=== PATIENT | female | born 1990 | race African-American/Black ===

== ENCOUNTER 2020-03-29 07:17 | Emergency (ER) | payer OTHER ==
[~2020-03-29] VITALS: Ht 167.6 cm; Wt 72.9 kg
[2020-03-29] MEDS ORDERED: NEXP1IMP SC (07:23)
[2020-03-29] MEDS ORDERED: LABE100T36 PO (07:23)
[2020-03-29] MEDS ORDERED: GALC120S SQ (07:23)
[2020-03-29 08:18] LABS: BASO % 0.7 % (0.0-1.0); EOS # 0.1 10^3/uL (0.0-0.5); EOS % 1.6 % (0.0-3.0); HEMATOCRIT 36.7 % (36.0-47.0); LYMPH # 1.8 10^3/uL (1.5-5.0); LYMPH % 40.9 % (24.0-44.0); MEAN CORPUSCULAR HEMOGLOBIN 29.6 pg (27.0-33.0); MEAN CORPUSCULAR HGB CONC 32.7 g/dl (32.0-36.5); MEAN CORPUSCULAR VOLUME 90.6 fl (80.0-96.0); MONO # 0.5 10^3/uL (0.0-0.8); MONO % 10.5 % (0.0-5.0); NEUTROPHILS # 2.1 10^3/uL (1.5-8.5); NEUTROPHILS % 46.1 % (36.0-66.0); PLATELET COUNT, AUTOMATED 267 10^3/uL (150-450); RED BLOOD COUNT 4.05 10^6/uL (4.00-5.40); WHITE BLOOD COUNT 4.5 10^3/uL (4.0-10.0)
[2020-03-29 08:44] LABS: ALBUMIN 3.9 GM/DL (3.2-5.2); BILIRUBIN,DIRECT 0.1 MG/DL (0.0-0.2); BILIRUBIN,TOTAL 0.4 MG/DL (0.2-1.0); TOTAL PROTEIN 7.8 GM/DL (6.4-8.2)
--- NOTE | 2020-03-29 10:08 | REP ---
PELVIC ULTRASOUND: Real-time sonographic evaluation of the pelvis is performed utilizing transabdominal and endovaginal technique. The bladder measures 6.5 x 4.7 x 8.1 cm. The uterus measures 8.1 x 3.1 x 3.8 cm. Endometrial thickness in the lower uterine segment is 5 mm and in the body and fundus 2 mm. A small amount of fluid is seen in the cervical canal. Right ovary measures 3.2 x 2.0 x 2.2 cm and the left ovary 1.9 x 1.1 x 2.4 cm. Complex cystic structure in the right ovary measures 2.4 x 1.2 x 1.3 cm representing a complex dominant follicle or resolving cyst. There is no torsion. There is no free fluid. IMPRESSION: Endometrial thickness 2 mm in the body and fundus and 5 mm in the lower uterine segment. A small amount of fluid in the cervical canal. Complex dominant follicle or resolving cyst right ovary 2.4 cm with no torsion. Electronically Signed by Richard Hidalgo MD 03/29/2020 11:18 P
[2020-03-29 10:31] VITALS: BP 138/96
--- NOTE | 2020-03-30 09:44 | ED PDOC ---
Post-Departure Follow-Up ft daniel arrington fxaed formal report of pelvic us for fu Lila Jean-Baptiste MD Mar 30, 2020 09:44
== END 2020-03-29 10:54 | disposition home or self-care (01) ==
LOC: M ED 07:17
DX: N83.291 Other ovarian cyst, right side (principal); I10 Essential (primary) hypertension; Z79.3 Long term (current) use of hormonal contraceptives; Z79.899 Other long term (current) drug therapy

== ENCOUNTER 2020-06-14 07:21 | Day surgery (SDC) | payer OTHER ==
[~2020-06-14] VITALS: Ht 162.6 cm; Wt 75.7 kg
[~2020-06-14 07:21] MED LIST: GALC120S SQ; LABE100T36 PO; LR 1,000 ML IV ONE; NEXP1IMP SC; ceFAZolin SOD 2 GM in IV 1 EA IV ONE
[2020-06-14] MEDS ORDERED: fentaNYL 100 MCG/2 ML INJECTION (J3010) As Ordered ONE (08:31)
[2020-06-14] MEDS ORDERED: propofoL 200 MG/20 ML VIAL As Ordered ONE (08:31)
[2020-06-14] MEDS ORDERED: LIDOCAINE 2% 100MG/5ML SDV (FOR ANES.) As Ordered ONE (08:31)
[2020-06-14] MEDS ORDERED: MIDAZOLAM INJ 2MG/2ML VIAL (J2250 PER 1MG) As Ordered ONE (08:31)
[2020-06-14] MEDS ORDERED: BUPIVACAINE HCL 0.5% 30 ML VIAL As Ordered ONE (09:10)
[2020-06-14] MEDS ORDERED: LIDOCAINE 1% MDV 20ML VIAL As Ordered ONE (09:10)
[2020-06-14] MEDS ORDERED: dexameTHASONE 4 MG/ML 1ML VIAL (J1100 PER 1MG) As Ordered ONE (09:10)
[2020-06-14 10:55] VITALS: BP 122/74
--- NOTE | 2020-06-21 08:32 | RO ---
DATE OF OPERATION: 06/14/2020 PREOPERATIVE DIAGNOSIS: Left bunion. POSTOPERATIVE DIAGNOSIS: Left bunion. PROCEDURE: Left foot bunionectomy, first metatarsal osteotomy. SURGEON: Austin Friedman DPM SENIOR LABEL SPECIALIST: None. ANESTHESIA: Monitored anesthesia care. PREOPERATIVE INJECTION: 15 mL of a 1:1 mixture of 1% lidocaine with 0.5% Marcaine plain. ESTIMATED BLOOD LOSS: Minimal. MATERIALS: Arthrex 3.5 headless compression screw, 3-0 and 4-0 Vicryl, and 4-0 nylon. INJECTABLES: 1 mL of Decadron 4 mg/mL. COMPLICATIONS: None. CONDITION: Stable. INDICATIONS: Torri Cai is a 29-year-old female who has a painful left bunion. She presents today for surgical correction. The patient's side and site were identified and marked preoperatively. Consent was reviewed and obtained. The risks, complications and alternatives to the procedure explained to the patient in detail and all questions were answered. PROCEDURE: The patient was brought to the operating room and placed on the operating room table in the supine position. Monitored anesthesia care was delivered by the anesthesia team. Preoperative injection of 15 mL of a 1:1 mixture of 1% lidocaine plain and 0.5% Marcaine plain were injected in the left foot. The left foot was prepped and draped in normal sterile fashion. The tourniquet was applied on the left ankle and inflated to 250 mmHg. A dorsomedial incision was carried through with a #15 blade and carried through to the first metatarsophalangeal joint capsule. A T-capsulotomy was performed exposing the metatarsal head. Following this, a lateral release was performed releasing the lateral capsule, adductor tendon and sesamoidal ligaments. McGlamry elevator was used to release the plantar structures. Following this, the median eminence of the metatarsal head was resected with sagittal saw and an osteotomy was performed on the metatarsal head and neck transposing it laterally. This was fixated with an Arthrex 3.5 headless compression screw. Site was smoothed with a rasp and then irrigated with normal saline. A small wedge of capsule was removed from the medial capsule and this was repaired with 3-0 Vicryl. Subcutaneous was closed with 4-0 Vicryl and skin closure with 4-0 nylon. One mL of Decadron was injected. Sterile dressings were applied. Tourniquet was deflated. The patient was brought PACU with vital signs stable and neurovascular status intact. She will be partial weightbearing with crutches. She will follow up in the office in two days. REYNA
== END 2020-06-14 11:20 | disposition home or self-care (01) ==
LOC: M SDC 07:21
PROVIDERS: ATTEND Podiatrist Foot & Ankle Surgery
DX: M20.12 Hallux valgus (acquired), left foot (principal); G43.909 Migraine, unspecified, not intractable, without status migrainosus; I10 Essential (primary) hypertension
CPT/HCPCS: 28296; 81025; 88300; 97116; C1713; J0690; J1100; J2250; J3010

== ENCOUNTER 2020-09-14 23:44 | Emergency (ER) | payer OTHER ==
[~2020-09-14] VITALS: Ht 162.6 cm; Wt 77.4 kg
[~2020-09-14 23:44] MED LIST changes: -LR 1,000 ML IV ONE; -ceFAZolin SOD 2 GM in IV 1 EA IV ONE
[2020-09-14] MEDS ORDERED: LABE100T4 (23:56)
[2020-09-15 00:26] LABS: BLOOD UREA NITROGEN 17 MG/DL (7-18); CALCIUM LEVEL 9.3 MG/DL (8.5-10.1); CARBON DIOXIDE LEVEL 28 MEQ/L (21-32); CHLORIDE LEVEL 105 MEQ/L (98-107); CREATININE FOR GFR 0.87 MG/DL (0.55-1.30); GLOMERULAR FILTRATION RATE > 60.0 (>60); GLUCOSE, FASTING 104 MG/DL (70-100); POTASSIUM SERUM 3.3 MEQ/L (3.5-5.1); SODIUM LEVEL 139 MEQ/L (136-145)
[2020-09-15 00:28] LABS: BASO # 0.1 10^3/uL (0.0-0.2); BASO % 0.5 % (0.0-1.0); EOS # 0.1 10^3/uL (0.0-0.5); EOS % 1.1 % (0.0-3.0); HEMATOCRIT 39.2 % (36.0-47.0); HEMOGLOBIN 12.6 g/dl (12.0-15.5); LYMPH # 4.6 10^3/uL (1.5-5.0); LYMPH % 36.4 % (24.0-44.0); MEAN CORPUSCULAR HEMOGLOBIN 29.4 pg (27.0-33.0); MEAN CORPUSCULAR HGB CONC 32.1 g/dl (32.0-36.5); MEAN CORPUSCULAR VOLUME 91.4 fl (80.0-96.0); MONO # 1.2 10^3/uL (0.0-0.8); MONO % 9.8 % (0.0-5.0); NEUTROPHILS # 6.5 10^3/uL (1.5-8.5); PLATELET COUNT, AUTOMATED 271 10^3/uL (150-450); RED BLOOD COUNT 4.29 10^6/uL (4.00-5.40); WHITE BLOOD COUNT 12.6 10^3/uL (4.0-10.0)
[2020-09-15] MEDS ORDERED: LABETALOL 100MG/20ML VIAL IV STA (00:49)
--- NOTE | 2020-09-15 00:50 | REPVR ---
PROCEDURE INFORMATION: Exam: XR Chest, 2 Views Exam date and time: 09/15/2020 12:31 AM Age: 29 years old Clinical indication: Chest pain; Type not specified TECHNIQUE: Imaging protocol: XR of the chest Views: 2 views. COMPARISON: No relevant prior studies available. FINDINGS: Lungs: Degree of inflation of the lungs is normal. No evidence of pulmonary edema. No focal airspace process. No concerning parenchymal lung mass. Pleural space: No pleural effusion or pneumothorax. Heart/Mediastinum: Cardiac silhouette appears normal. No mediastinal adenopathy or hilar mass. Bones/joints: Osseous structures show no acute or concerning abnormality. IMPRESSION: No active or focal cardiopulmonary process. Electronically signed by: Zeb Townsend On 09/15/2020 00:50:33 AM
[2020-09-15 00:57] VITALS: BP 169/100
[2020-09-15 01:49] LABS: FREE T4 0.88 NG/DL (0.76-1.46); MAGNESIUM LEVEL 2.2 MG/DL (1.8-2.4)
[2020-09-15] MEDS ORDERED: LABE100T4 PO (02:11)
[2020-09-15] MEDS ORDERED: LABETALOL 100 MG TAB PO ONE (02:15)
[2020-09-15 02:30] VITALS: BP 123/71
--- NOTE | 2020-09-15 08:05 | ECGEPIP ---
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
== END 2020-09-15 02:43 | disposition home or self-care (01) ==
LOC: M ED 23:44
DX: R00.2 Palpitations (principal); I10 Essential (primary) hypertension; R00.0 Tachycardia, unspecified; Z79.3 Long term (current) use of hormonal contraceptives

== ENCOUNTER → 2020-10-04 | Outpatient (REF) | payer OTHER ==
[~2020-10-04] MED LIST changes: +EMGA120I; +LABE100T4; +LABE100T4 PO
[2020-10-04 17:58] LABS: APPEARANCE, URINE CLEAR (CLEAR); BACTERIA, URINE AUTO NEGATIVE (NEGATIVE); BILIRUBIN, URINE AUTO NEGATIVE (NEGATIVE); BLOOD, URINE BLOOD NEGATIVE (NEGATIVE); COLOR, URINE YELLOW (YELLOW); GLUCOSE, URINE (UA) AUTO NEGATIVE (NEGATIVE); KETONE, URINE AUTO NEGATIVE (NEGATIVE); LEUKOCYTE ESTERASE, URINE AUTO TRACE (NEGATIVE); MUCUS, URINE SMALL (NEGATIVE); NITRITE, URINE AUTO NEGATIVE (NEGATIVE); PROTEIN, URINE AUTO NEGATIVE (NEGATIVE); RBC, URINE AUTO 0 /HPF (0-3); SPECIFIC GRAVITY URINE AUTO 1.026 (1.002-1.035); SQUAMOUS EPITHELIAL CELL UR AU 3 /HPF (0-6); UROBILINOGEN, URINE AUTO 0.2 mg/dL (0.0-2.0); WBC, URINE AUTO 1 /HPF (0-3)
== END ==
LOC: M SMT 17:00
PROVIDERS: ATTEND Nurse Practitioner Family
DX: R35.0 Frequency of micturition (principal)
CPT/HCPCS: 51798; 81001; 87086; G0463

== ENCOUNTER 2020-10-31 08:37 | Day surgery (SDC) | payer OTHER ==
[~2020-10-31] VITALS: Ht 162.6 cm; Wt 79.8 kg
[~2020-10-31 08:37] MED LIST changes: +ACETAMINOPHEN 650 MG SUPP PR ONE; -LABE100T36 PO; +LABE100T5 PO; +LR 1,000 ML IV ONE
--- OUTSIDE RECORDS SUMMARY | 2020-10-31 09:12 | CCD | Continuity of Care Document ---
Author Author Karina LAZAR M.D. Organization Unknown Address [address] [place] [address] Phone [phone] Problems Active Problems Provider Date Migraine Asia Lazar M.D. Onset: 03/24/2020 Occipital headache Asia Lazar M.D. Onset: 03/24/2020 Social History Type Date Description Comments Sex Unknown Tobacco Use Start: Unknown Patient has never smoked Allergies, Adverse Reactions, Alerts Description No Known Drug Allergies Medications Active Medications SIG Qnty Indications Ordering Provide r Date Rizatriptan Benzoate 10mg Tablets Dispers take 1 tab at the immediate onset of migraine headache. may repeat in 2 hours, max 2 tabs in 24 hours, and 4 tabs in 7 days. 9tabs Sa brian Lazar M.D. 10/09/2020 Valium 5mg Tablets 1 by mouth half an hour before mri scan 1tabel Brizuela M.D. 04/05/2020 Emgality 120mg/ml Solution Auto-In ject Dispense one 120mg sc injection once per month. 1ml Asia Lazar M.D. 03/24/2020 Ondansetron 4mg Tablets Dispers take 1 tab every 8 hours as needed for migraine and or nausea and vomiting. 30tabel Lazar M.D. 03/24/2020 Immunizations Description No Information Available Vital Signs Date Vital Result Comment 10/09/2020 12:14pm Respiratory Rate 12 /min Height 64 inches 5'4" Weight 155.00 lb BMI (Body Mass Index) 26.6 kg/m2 Moran Body Weight 120 lb 06/29/2020 12:12pm Height 64 inches 5'4" Weight 155.00 lb BMI (Body Mass Index) 26.6 kg/m2 Moran Body Weight 120 lb Results Description No Information Available Procedures Date Code Description Status 05/17/2020 01256 Sympathetic Skin Responses Compl eted 05/17/2020 04276 Sympathetic Skin Responses Compl eted 05/17/2020 19778 Test Autonomic Nervous System, C ardiovagal Innervation Completed 05/17/2020 83412 Test Autonomic Nervous System, C ardiovagal Innervation Completed 05/17/2020 12622 Artery Study Extremity Mult Leve ls Bilateral Completed 05/17/2020 79618 Artery Study Extremity Mult Leve ls Bilateral Completed 05/17/2020 77509 Artery Study Extremity Mult Leve ls Bilateral Completed 05/17/2020 99991 Artery Study Extremity Mult Leve ls Bilateral Completed Medical Devices Description No Information Available Encounters Type Date Location Provider Dx Diagnosis Office Visit 10/09/2020 12:00p Main office - [place] Asia bennett M.D. 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 G43.119 Migraine with aura, intractable, without status migrainosus Assessments Date Code Description Provider 10/09/2020 D18.02 Hemangioma of intracranial struc tures Asia Lazar M.D. 10/09/2020 R51.9 Headache, unspecified Asia baez M.D. 06/29/2020 G43.119 Migraine with aura, intractable, without status migrainosus Asia Lazar M.D. 05/17/2020 I95.1 Orthostatic hypotension Asia foley M.D. 05/17/2020 I95.1 Orthostatic hypotension Ans/VS 05/17/2020 R00.0 Tachycardia, unspecified Asia ralph M.D. 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 Created [address] [place] [address] [phone]
--- OUTSIDE RECORDS SUMMARY | 2020-10-31 09:12 | CCD ---
Author Author [facility] Organization [facility] Address Unknown Phone Unavailable Care Team Providers Care Pipe Fitter Apprentice Name Role Phone Zan Orta Unavailable PROBLEMS Type Condition ICD9-CM Code WER19-WT Code Onset Dates Condition S tatus SNOMED Code Notes Problem Urinary frequency R35.0 Active 432333175 ALLERGIES No Known Allergies ENCOUNTERS from 1990 to 2020-10-07 Encounter Location Date Provider Diagnosis [facility] [address] [place] [address] Sep Zan Orta IMMUNIZATIONS No Information SOCIAL HISTORY Tobacco Use: Social History Observation Description Date Details (start date - stop date) Never Smoker Sex Assigned At : Social History Observation Description Sex Assigned At Unknown Language: Question Answer Notes Languages spoken: Israeli Caodaism: Question Answer Notes Caodaism No jewish beliefs that would impact health care. Alcohol Screening: Question Answer Notes Did you have a drink containing alcohol in the past year? Ye s Points 1 Interpretation Negative How often did you have six or more drinks on one occas ion in the past year? Never (0 points) How many drinks did you have on a typica l day when you were drinking in the past year? 1 or 2 (0 points) How often did you have a drink containing alcohol in t he past year? Monthly or less (1 point) Tobacco Use: Question Answer Notes Are you a: never smoker REASON FOR REFERRAL No Information VITAL SIGNS No information MEDICATIONS Medication SIG (Take, Route, Frequency, Duration) Notes Start Da te End Date Status Labetalol HCl 100 MG 1 tablet Orally Twice a day for 30 day(s) Active Oxybutynin Chloride ER 10 MG 1 tablet Orally Once a day for 30 d ay(s) Sep, Active Elmiron 100 MG 1 capsule on an empty stomac h Orally Three times a day for 30 day(s) Not-Taking Nexplanon 68 MG as directed Subcutaneous Active Letrozole 2.5 MG 1 tablet Orally Once a day for 30 day(s) Not-Taking PROCEDURES No Information RESULTS No Results REASON FOR VISIT records MEDICAL (GENERAL) HISTORY Type Description Date Medical History HTN Medical History Migraine with aura Surgical History foot surgery 05/2020 Surgical History tonsillectomy 2018 Surgical History oral surgery Surgical History colonoscopy 2016 Goals Section No Information Health Concerns No Information MEDICAL EQUIPMENT No Information MENTAL STATUS No Information FUNCTIONAL STATUS No Information ASSESSMENTS No Information PLAN OF TREATMENT Medication Medication Name Sig Start Date Stop Date Oxybutynin Chloride ER 10 MG 1 tablet Orally Once a day for 30 day(s) Sep, Next Appt Details Provider Name:Zan Orta, 2020-11-15 01:00:00 PM, [address], [place], [address], Insurance Providers Payer Name Payer Address Payer Phone Insured Name Patient Relati onship to Insured Coverage Start Date Coverage End Date [facility] [employer] [address] [place] [address] SAMMY FRANCISCO self
--- OUTSIDE RECORDS SUMMARY | 2020-10-31 09:12 | CCD ---
Author Author [facility] Organization [facility] Address Unknown Phone Unavailable Care Team Providers Care Channel Executive Name Role Phone Yani CHACKO DPM Unavailable Unavailable Yani CHACKO DPM Unavailable Unavailable Yani CHACKO DPM Unavailable Unavailable Yani CHACKO DPM Unavailable Unavailable Yani CHACKO DPM Unavailable Unavailable Yani CHACKO DPM Unavailable Unavailable Yani CHACKO DPM Unavailable Unavailable Yani CHACKO DPM Unavailable Unavailable Yani CHACKO DPM Unavailable Unavailable Yani CHACKO DPM Unavailable Unavailable Yani CHACKO DPM Unavailable Unavailable Yani CHACKO DPM Unavailable Unavailable Yani CHACKO DPM Unavailable Unavailable Yani CHACKO DPM Unavailable Unavailable Yani CHACKO DPM Unavailable Unavailable Yani CHACKO DPM Unavailable Unavailable Yani CHACKO DPM Unavailable Unavailable Yani CHACKO DPM Unavailable Unavailable Yani CHACKO DPM Unavailable Unavailable Yani CHACKO DPM Unavailable Unavailable Yani CHACKO DPM Unavailable Unavailable Yani CHACKO DPM Unavailable Unavailable Yani CHACKO DPM Unavailable Unavailable Yani CHACKO DPM Unavailable Unavailable Yani CHACKO DPM Unavailable Unavailable Yani CHACKO DPM Unavailable Unavailable Yani CHACKO DPM Unavailable Unavailable Yani CHACKO DPM Unavailable Unavailable Yani CHACKO DPM Unavailable Unavailable Yani CHACKO DPM Unavailable Unavailable Obiee Obia Solution Architect Dimeis, L Wendy STEWARD/STEWARDESS THIRD Unavailable Unavailable Obiee Obia Solution Architect Dimeis, L Wendy STEWARD/STEWARDESS THIRD Unavailable Unavailable Obiee Obia Solution Architect Dimeis, L Wendy STEWARD/STEWARDESS THIRD Unavailable Unavailable Obiee Obia Solution Architect Dimeis, L Wendy STEWARD/STEWARDESS THIRD Unavailable Unavailable Obiee Obia Solution Architect Dimeis, L Wendy STEWARD/STEWARDESS THIRD Unavailable Unavailable Obiee Obia Solution Architect Dimeis, L Wendy STEWARD/STEWARDESS THIRD Unavailable Unavailable Obiee Obia Solution Architect Dimeis, L Wendy STEWARD/STEWARDESS THIRD Unavailable Unavailable Obiee Obia Solution Architect Dimeis, L Wendy STEWARD/STEWARDESS THIRD Unavailable Unavailable Obiee Obia Solution Architect Dimeis, L Wendy STEWARD/STEWARDESS THIRD Unavailable Unavailable Obiee Obia Solution Architect Dimeis, L Wendy STEWARD/STEWARDESS THIRD Unavailable Unavailable Obiee Obia Solution Architect Dimeis, L Wendy STEWARD/STEWARDESS THIRD Unavailable Unavailable Obiee Obia Solution Architect Dimeis, L Wendy STEWARD/STEWARDESS THIRD Unavailable Unavailable Obiee Obia Solution Architect Dimeis, L Wendy STEWARD/STEWARDESS THIRD Unavailable Unavailable Obiee Obia Solution Architect Dimeis, L Wendy STEWARD/STEWARDESS THIRD Unavailable Unavailable Obiee Obia Solution Architect Dimeis, L Wendy STEWARD/STEWARDESS THIRD Unavailable Unavailable Obiee Obia Solution Architect Dimeis, L Wendy STEWARD/STEWARDESS THIRD Unavailable Unavailable Obiee Obia Solution Architect Dimeis, L Wendy STEWARD/STEWARDESS THIRD Unavailable Unavailable Obiee Obia Solution Architect Dimeis, L Wendy STEWARD/STEWARDESS THIRD Unavailable Unavailable Obiee Obia Solution Architect Dimeis, L Wendy STEWARD/STEWARDESS THIRD Unavailable Unavailable Obiee Obia Solution Architect Dimeis, L Wendy STEWARD/STEWARDESS THIRD Unavailable Unavailable Obiee Obia Solution Architect Dimeis, L Wendy STEWARD/STEWARDESS THIRD Unavailable Unavailable Obiee Obia Solution Architect Dimeis, L Wendy STEWARD/STEWARDESS THIRD Unavailable Unavailable Obiee Obia Solution Architect Dimeis, L Wendy STEWARD/STEWARDESS THIRD Unavailable Unavailable Obiee Obia Solution Architect Dimeis, L Wendy STEWARD/STEWARDESS THIRD Unavailable Unavailable Obiee Obia Solution Architect Dimeis, L Wendy STEWARD/STEWARDESS THIRD Unavailable Unavailable Obiee Obia Solution Architect Dimeis, L Wendy STEWARD/STEWARDESS THIRD Unavailable Unavailable Obiee Obia Solution Architect Dimeis, L Wendy STEWARD/STEWARDESS THIRD Unavailable Unavailable Vaishali Antony MD Unavailable Unavailable Vaishali Antony MD Unavailable Unavailable Vaishali Antony MD Unavailable Unavailable Vaishali Antony MD Unavailable Unavailable Vaishali Antoyn MD Unavailable Unavailable Vaishali Antony MD Unavailable Unavailable Vaishali Antony MD Unavailable Unavailable Vaishali Antony MD Unavailable Unavailable Vaishali Antony MD Unavailable Unavailable Vaishali Antony MD Unavailable Unavailable Vaishali Antony MD Unavailable Unavailable Vaishali Antony MD Unavailable Unavailable Vaishali Antony MD Unavailable Unavailable Vaishali Antony MD Unavailable Unavailable Vaishali Antony MD Unavailable Unavailable Vaishali Antony MD Unavailable Unavailable Vaishali Antony MD Unavailable Unavailable Vaishali Antony MD Unavailable Unavailable Vaishali Antony MD Unavailable Unavailable Vaishali Antony MD Unavailable Unavailable Vaishali Antony MD Unavailable Unavailable Vaishali Antony MD Unavailable Unavailable Vaishali Antony MD Unavailable Unavailable Vaishali Antony MD Unavailable Unavailable Vaishali Antony MD Unavailable Unavailable Vaishali Antony MD Unavailable Unavailable Vaishali Antony MD Unavailable Unavailable Vaishali Antony MD Unavailable Unavailable Vaishali Antony MD Unavailable Unavailable Vaishali Antony MD Unavailable Unavailable Vaishali Antony MD Unavailable Unavailable Vaishali Antony MD Unavailable Unavailable Vaishali Antony MD Unavailable Unavailable Vaishali Antony MD Unavailable Unavailable Vaishali Antony MD Unavailable Unavailable Vaishali Antony MD Unavailable Unavailable Vaishali Antony MD Unavailable Unavailable Vaishali Antony MD Unavailable Unavailable Vaishali Antony MD Unavailable Unavailable Vaishali Antony MD Unavailable Unavailable Vaishali Antony MD Unavailable Unavailable Vaishali Antony MD Unavailable Unavailable Vaishali Antony MD Unavailable Unavailable Vaishali Antony MD Unavailable Unavailable Vaishali Antony MD Unavailable Unavailable Vaishali Antony MD Unavailable Unavailable Vaishali Antony MD Unavailable Unavailable Vaishali Antony MD Unavailable Unavailable Vaishali Antony MD Unavailable Unavailable Vaishali Antony MD Unavailable Unavailable Vaishali Antony MD Unavailable Unavailable Vaishali Antony MD Unavailable Unavailable Vaishali Antony MD Unavailable Unavailable Vaishali Antony MD Unavailable Unavailable Vaishali Antony MD Unavailable Unavailable Vaishali Antony MD Unavailable Unavailable Vaishali Antony MD Unavailable Unavailable Vaishali Antony MD Unavailable Unavailable Vaishali Antony MD Unavailable Unavailable Vaishali Antony MD Unavailable Unavailable Cassia, O Samah MD Unavailable Unavailable Cassia, O Samah MD Unavailable Unavailable Cassia, O Samah MD Unavailable Unavailable Cassia, O Samah MD Unavailable Unavailable Cassia, O Samah MD Unavailable Unavailable Cassia, O Samah MD Unavailable Unavailable Cassia, O Samah MD Unavailable Unavailable Cassia, O Samah MD Unavailable Unavailable Cassia, O Samah MD Unavailable Unavailable Cassia, O Samah MD Unavailable Unavailable Cassia, O Samah MD Unavailable Unavailable Cassia, O Samah MD Unavailable Unavailable Cassia, O Samah MD Unavailable Unavailable Cassia, O Samah MD Unavailable Unavailable Cassia, O Samah MD Unavailable Unavailable Cassia, O Samah MD Unavailable Unavailable Re-disclosure Warning The records that you are about to access may contain information from federally-assisted alcohol or drug abuse programs. If such information is present, then the following federally mandated warning applies: This information has been disclosed to you from records protected by federal confidentiality rules (42 CFR part 2). The federal rules prohibit you from making any further disclosure of this information unless further disclosure is expressly permitted by the written consent of the person to whom it pertains or as otherwise permitted by 42 CFR part 2. A general authorization for the release of medical or other information is NOT sufficient for this purpose. The Federal rules restrict any use of the information to criminally investigate or prosecute any alcohol or drug abuse patient.The records that you are about to access may contain highly sensitive health information, the redisclosure of which is protected by Article 27-F of the [facility] Public Health law. If you continue you may have access to information: Regarding HIV / AIDS; Provided by facilities licensed or operated by the [facility] Office of Mental Health; or Provided by the [facility] Office for People With Developmental Disabilities. If such information is present, then the following [facility] mandated warning applies: This information has been disclosed to you from confidential records which are protected by state law. State law prohibits you from making any further disclosure of this information without the specific written consent of the person to whom it pertains, or as otherwise permitted by law. Any unauthorized further disclosure in violation of state law may result in a fine or long-term sentence or both. A general authorization for the release of medical or other information is NOT sufficient authorization for further disc losure. Encounters Encounter Providers Location Date Indications Data Source(s ) Outpatient Attender: Wendy Olsen NP 10/25/2020 02: 46:00 PM EST L50.8 [facility] L50.8 Outpatient Attender: Asai Antony MD [facility] 10/09/2020 11:00:00 AM EST [facility] ([facility]) Outpatient [address] [facility] [id number] 10/04/2020 12:00:00 AM EST eCW1 ([facility]) Unknown [address] [facility] [place] [id number] 10/04/2020 12:00:00 AM EST eCW1 ([facility]) Office Visit Attender: SEBASTIAN CHACKO [facility] Office 07/17 12:30:00 PM EST [facility] ([facility] Office Visit Attender: SEBASTIAN CHACKO [facility] [place] [facility] 06/15 01:30:00 PM EDT [facility] ([facility] Outpatient Attender: Asia Antony MD [facility] 06/29/2020 12:00:00 PM EDT [facility] ([facility] Office Visit Attender: SEBASTIAN CHACKO [facility] [place] [facility] 10/2019 01:15:00 PM EDT [facility] ([facility] Outpatient Attender: SEBASTIAN CHACKO [facility] [place] [facility] 03/15 09:15:00 AM EDT [facility] ([facility] Outpatient Attender: Asia Antony MD [facility] 03/24/2020 08:30:00 AM EDT [facility] ([facility]) Medications Medication Brand Name Start Date Product Form Dose Route Admi nistrative Instructions Pharmacy Instructions Status Indications Reaction Description Data Source(s) kennytriptan 10 MG Disintegrating Oral Tablet Rizatriptan Yaakov zoate 10/09/2020 12:00:00 AM EST active M EDENT ([facility] ) 24 HR Oxybutynin chloride 10 MG Extended Release Oral Tablet Oxybutynin Chloride ER 10 MG Oxybutynin Chloride ER 10 MG 10/04/2020 12:00:00 AM EST 1.0 {tablet} active Oxybutynin Chloride ER 10 MG eCW1 ([facility]) 24 HR Oxybutynin chloride 10 MG Extended Release Oral Tablet Oxybutynin Chloride ER 10 MG Oxybutynin Chloride ER 10 MG 10/04/2020 12:00:00 AM EST 1.0 {tablet} active Oxybutynin Chloride ER 10 MG eCW1 ([facility]) Acetaminophen 325 MG / Oxycodone Hydrochloride 5 MG Or al Tablet Oxycodone-Acetaminophen 06/15/2020 12:00:00 AM EDT active [facility] ([facility] Diazepam 5 MG Oral Tablet [Valium] Valium 04/05/2020 12:00:00 AM EDT ORAL active [facility] ([facility] ) Emgality Emgality 03/24/2020 12:00:00 AM EDT activ e [facility] ([facility] ) Ondansetron 4 MG Disintegrating Oral Tablet Ondansetron 03/24/2020 12:00:00 AM EDT active [facility] ([facility] ) Insurance Providers Payer name Policy type / Coverage type Policy ID Covered democrat ID Covered democrat's relationship to kate Policy Kate Plan Information [employer] [id number] SP [id number] [employer] [place] [id number] S [id number] [employer] [id number] SP [id number] [facility] HUMANA [id number] SP [id number] [facility] HUMAN [id number] SP [id number] Problems, Conditions, and Diagnoses Code Display Name Description Problem Type Effective Dates Data Source(s) R35.0 Urinary frequency Urinary frequency Problem 10/04/2020 12:00:00 AM EST eCW1 ([facility]) [id number] Osteochondropathy Osteochondropathy Problem 07/12/2020 12:00:00 AM EDT [facility] ([facility] [id number] Convalescence after surgery Convalescence after surger y Problem 06/22/2020 12:00:00 AM EDT [facility] ([facility] [id number] Swelling of first metatarsal joint of dong llux of left foot Swelling of first metatarsal joint of hallux of left foot Problem 04/06/2020 12:00:00 AM EDT [facility] ([facility] [id number] Occipital headache Occipital headache Problem 0 12:00:00 AM EDT [facility] ([facility] ) [id number] Migraine Migraine Problem 03/24/2020 12:00:00 AM ED T [facility] ([facility] ) Surgeries/Procedures Procedure Description Date Indications Data Source(s) uro PVR (Post Voiding Residual) Bladder Scan 1 12:00:00 AM EST eCW1 ([facility]) RADEX FOOT COMPLETE MINIMUM 3 VIEWS 08/07/2020 12:00:0 0 AM EST [facility] ([facility] RADEX FOOT COMPLETE MINIMUM 3 VIEWS 07/03/2020 12:00:0 0 AM EDT [facility] ([facility] Hallux Valgus Correction W/Metatarsal Ostetomy (Kathleen Camacho) 06/14/2020 12:00:00 AM EDT [facility] ([facility] NON-INVASIVE PHYSIOLOGIC STUDY EXTREMITY 3 LEVLS 05/17 12:00:00 AM EDT [facility] ([facility] ) NON-INVASIVE PHYSIOLOGIC STUDY EXTREMITY 3 LEVLS 05/17 12:00:00 AM EDT [facility] ([facility], ) NON-INVASIVE PHYSIOLOGIC STUDY EXTREMITY 3 LEVLS 05/17 12:00:00 AM EDT [facility] ([facility] ) NON-INVASIVE PHYSIOLOGIC STUDY EXTREMITY 3 LEVLS 05/17 12:00:00 AM EDT [facility] ([facility] ) TSTG ANS FUNCJ CARDIOVAGAL INNERVAJ PARASYMP 0 12:00:00 AM EDT [facility] ([facility] ) TSTG ANS FUNCJ CARDIOVAGAL INNERVAJ PARASYMP 0 12:00:00 AM EDT [facility] ([facility] ) TESTING AUTONOMIC NERVOUS SYSTEM FUNCTION 05/17/2020 1 2:00:00 AM EDT [facility] ([facility] ) TESTING AUTONOMIC NERVOUS SYSTEM FUNCTION 05/17/2020 1 2:00:00 AM EDT [facility] ([facility] ) Magnetic Resonance Angiogtaphy Head W/O Contrast Material(S) 04/06/2020 12:00:00 AM EDT [facility] ([facility] Magnetic Resonance Angiogtaphy Head W/O Contrast Material(S) 04/06/2020 12:00:00 AM EDT [facility] ([facility] Magnetic Resonance Angiography Neck W/O And Then With Contra st ML 04/06/2020 12:00:00 AM EDT [facility] ([facility] ) Magnetic Resonance Angiography Neck W/O And Then With Contra st ML 04/06/2020 12:00:00 AM EDT [facility] ([facility] ) MRI Brain W/O Contrast, Followed By Contrast 0 12:00:00 AM EDT [facility] ([facility] ) MRI Brain W/O Contrast, Followed By Contrast 0 12:00:00 AM EDT [facility] ([facility] ) RADEX FOOT COMPLETE MINIMUM 3 VIEWS 03/31/2020 12:00:0 0 AM EDT [facility] ([facility] Chemotherpy Admin Subcutaneous/Im Non-Hormonal Anti-Neoplast ic 03/24/2020 12:00:00 AM EDT [facility] ([facility] ) Results ID Date Data Source [id number] 10/25/2020 03:11:00 PM [facility] Name Value Range Interpretation Code Description Data Beena rce(s) Supporting Document(s) Leukocytes [#/volume] in Blood by Automated count 8.5 10*3/uL 4.45-10 .71 [facility] Erythrocytes [#/volume] in Blood by Automated count 4.00 10*6/uL 4.20-5.40 Below low normal [facility] Hemoglobin [Moles/volume] in Blood 11.8 g/dL 10.7-15.4 [facility] Hematocrit [Volume Fraction] of Blood by Automated count 36.0 % 37-47 Below low normal [facility] Erythrocyte mean corpuscular volume [Ent itic volume] in Cord blood by Automated count 90.0 fL 80-96 N [facility] Erythrocyte mean corpuscular hemoglobin [Entitic mass] by Automated count 29.5 pg 27-31 N [facility] Erythrocyte mean corpuscular hemoglobin concentration [Mass/volume] in Cord blood 32.8 g/dL 33-37 Below low normal [facility] Erythrocyte distribution width [Entitic volume] by Automated count 12 % 11-15 N [facility] Platelets [#/volume] in Blood by Automated count 265 10*3/uL 130-472 [facility] Platelet mean volume [Entitic volume] in Blood 10.2 fL 9.1-13.1 N [facility] Neutrophils/100 leukocytes in Blood by Automated count 50.3 % 41- 77 [facility] Neutrophils [#/volume] in Blood by Automated count 4.3 U 1.7-7.6 N [facility] Lymphocytes/100 leukocytes in Blood by Automated count 38.2 % 14- 46 [facility] Lymphocytes [#/volume] in Blood by Automated count 3.3 U 0.6-4.6 N [facility] Monocytes/100 leukocytes in Blood by Automated count 8.7 % 4-12 [facility] Monocytes [#/volume] in Blood by Automated count 0.7 U 0.2-1.2 N [facility] Eosinophils/100 leukocytes in Blood by Automated count 2.0 % 0-7 N [facility] Eosinophils [#/volume] in Blood by Automated count 0.2 U 0.0-0.5 N [facility] Basophils/100 leukocytes in Blood by Automated count 0.6 % 0.4-1 .3 N [facility] Basophils [#/volume] in Blood by Automated count 0.1 U 0.0-0.2 N [facility] NUCLEATED RED BLOOD CELL 0 % [facility] NUCLEATED RED BLOOD CELL# 0 U [facility] Immature granulocytes [Presence] in Blood by Automated count 0-2 N [facility] Immature granulocytes [#/volume] in Blood by Automated count 0.0 U 0-0.1 N [facility] Manual Differential panel - Blood NO [facility] ID Date Data Source [id number] 10/25/2020 03:56:00 PM EST [facility] Name Value Range Interpretation Code Description Data Beena rce(s) Supporting Document(s) Urea nitrogen [Mass/volume] in Serum or Plasma 14 mg/dL 9-23 [facility] Sodium [Moles/volume] in Serum or Plasma 140 mmol/L 132-146 [facility] Potassium [Moles/volume] in Serum or Plasma 3.8 mmol/L 3.5-5.5 [facility] Chloride [Moles/volume] in Serum or Plasma 110 mmol/L 99-109 Above high normal [facility] Carbon dioxide, total [Moles/volume] in Serum or Plasma 27 mmol/L 20 -31 [facility] Anion gap in Serum or Plasma 7 mmol/L 8-16 Below low normal [facility] Glucose [Mass/volume] in Serum or Plasma 94 mg/dL 74-106 [facility] Creatinine 0.8 mg/dL 0.5-1.1 [facility] Glomerular filtration rate/1.73 sq M.pre dicted [Volume Rate/Area] in Serum or Plasma Greater Than 60 ABOVE 60 [facility] Alanine aminotransferase [Enzymatic acti vity/volume] in Serum or Plasma by With P-5'-P 24 U/L 10-49 [facility] ital Aspartate aminotransferase [Enzymatic ac tivity/volume] in Serum or Plasma by With P-5'-P 12 U/L 0-33 [facility] pital Alkaline phosphatase [Enzymatic activity/volume] in Serum or Plasma 86 U/L 45-129 [facility] Calcium [Mass/volume] in Serum or Plasma 8.7 mg/dL 8.5-10.1 [facility] Bilirubin.total [Mass/volume] in Serum or Plasma 0.2 mg/dL 0.3-1.2 Below low normal [facility] Albumin [Mass/volume] in Serum or Plasma by Bromocresol purple (BCP) dye binding method 4.3 g/dL 3.2-4.8 N [facility] Protein [Mass/volume] in Serum or Plasma 7.6 g/dL 5.7-8.2 [facility] ID Date Data Source [id number] 10/27/2020 03:04:00 PM [facility] Name Value Range Interpretation Code Description Data Beena rce(s) Supporting Document(s) Nuclear Ab [Titer] in Serum by Immunofluorescence NEGATIVE NEGATIVE [facility] JUSTYN IFA is a first line screen for detec ting thepresence of up to approximately 150 autoantibodies invarious autoimmune diseases. A negative JUSTYN IFA resultsuggests an JUSTYN-associated autoimmune disease is notpresent at this time, but is not definitive. If thereis high clinical suspicion for Sjogren's syndrome,testing for anti-SS-A/Ro antibody should be considered.Anti-Edith-1 antibody should be considered for clinicallysuspected inflammatory myopathies.AC-0: NegativeInternational Consensus on JUSTYN Patterns(https://doi.org/10.1515/tzmn-9199-6071)For additional information, please refer [email or web address] [email or web address] Services/faq/[email or web address](This link is being provided for informational/educational purposes only.)THIS TEST WAS PERFORMED AT:[facility] [id number] MERATI,MD ID Date Data Source [id number] 10/25/2020 03:56:00 PM [facility] Name Value Range Interpretation Code Description Data Beena rce(s) Supporting Document(s) Thyrotropin [Units/volume] in Serum or Plasma by Detec tion limit <= 0.005 mIU/L 0.70 u[iU]/mL 0.35-5.50 [facility] al ID Date Data Source [id number] 10/27/2020 03:04:00 PM [facility] Name Value Range Interpretation Code Description Data Beena rce(s) Supporting Document(s) Thyroid Peroxidase Abs 1 [IU]/mL <9 [facility] THIS TEST WAS PERFORMED AT:[facility] [id number] MERATI,MD ID Date Data Source [id number] 10/25/2020 03:56:00 PM EST [facility] Name Value Range Interpretation Code Description Data Beena rce(s) Supporting Document(s) Rheumatoid factor [Units/volume] in Serum by Nephelometry Le ss Than 10.0 0.0-14.0 N [facility] ID Date Data Source [id number] 10/27/2020 03:04:00 PM [facility] Name Value Range Interpretation Code Description Data Beena rce(s) Supporting Document(s) Thyroglobulin Ab [Units/volume] in Serum or Plasma Less Than 1 < or = 1 [facility] Thyroglobulin [Mass/volume] in Serum or Plasma 11.2 ng/mL [facility] Reference Range: Intact Thyro id 2.8-40.9 Athyrotic <0.1 Note: Abnormal flagging is based on the reference interval for patients with intact thyroid.This test was performed using the Nicki Coulterchemiluminescent method. Values obtained fromdifferent assay methods cannot be usedinterchangeably. Thyroglobulin levels, regardlessof value, should not be interpreted as absoluteevidence of the presence or absence of disease.For additional information, please refer [email or web address] Services/faq/[email or web address](This link is being provided for informational/educational purposes only.)THIS TEST WAS PERFORMED AT:[facility] [id number]BHUMI ROJAS MD ID Date Data Source URINE CULTURE 10/04/2020 12:00:00 AM EST eCW1 ([facility]) Name Value Range Interpretation Code Description Data Beena rce(s) Supporting Document(s) URINE CULTURE eCW1 ([facility]) ID Date Data Source UA URINALYSIS 10/04/2020 12:00:00 AM EST eCW1 ([facility]) Name Value Range Interpretation Code Description Data Beena rce(s) Supporting Document(s) UA URINALYSIS eCW1 ([facility]) ID Date Data Source [id number] 08/14/2020 02:58:00 PM EST [facility] Name Value Range Interpretation Code Description Data Beena rce(s) Supporting Document(s) SARS coronavirus 2 RNA [facility] This lab was ordered by [facility] Laboratory and reported by [facility]. ID Date Data Source [id number] 06/14/2020 10:14:00 AM EDT [facility] ([facility] Name Value Range Interpretation Code Description Data Beena rce(s) Supporting Document(s) Surgical pathology study Laboratory test result MEDENT ([facility] FINAL DIAGNOSIS Bone, left foot, bunionectomy: For gross examination only. 06/14/2020 - 152 CLINICAL DIAGNOSIS Hallux valgus left foot 06/14/2020 - 1514 GROSS DIAGNOSIS Received in formalin labeled "bone left foot" and consists of two fragments of bone 2 x 2 x 0.5 cm. For gross exam only. -OA 06/14/2020 - 1514 Signed BILL MARS MD 06/15/2020 0827 Procedure Social History Code Duration Value Status Description Data Source(s ) Smoking 10/04/2020 12:00:00 AM EST Never Smoker completed Never S moker eCW1 ([facility]) Smoking 10/04/2020 12:00:00 AM EST Never Smoker completed Never S moker eC1 ([facility]) Vital Signs ID Date Data Source UNK Name Value Range Interpretation Code Description Data Source(s) [place] body weight 120 [lb_av] 120 [lb_av] MEDEN T ([facility], ) Body mass index (BMI) [Ratio] 26.6 kg/m2 26.6 k g/m2 MEDENT ([facility]) Body weight 155.00 [lb_av] 155.00 [lb_av] MEDEN T ([facility]) Body height 64 [in_i] 64 [in_i] MEDENT ([facility]) 5'4" Respiratory rate 12 /min 12 /min MEDENT ( [facility], ) Diastolic blood pressure 70 mm[Hg] 70 mm[Hg] eCW1 ([facility]) Systolic blood pressure 122 mm[Hg] 122 mm[Hg] e CW1 ([facility]) Body temperature 98.2 [degF] 98.2 [degF] eCW1 ( [facility]) Respiratory rate 18 /min 18 /min eCW1 ([facility]) Heart rate 78 /min 78 /min eCW1 ([facility]) Body mass index (BMI) [Ratio] 29.01 kg/m2 29.01 kg/m2 eCW1 ([facility]) Body height 64 [in_i] 64 [in_i] eCW1 ([facility]) Body weight 169 [lb_av] 169 [lb_av] eCW1 ([facility]) [place] body weight 120 [lb_av] 120 [lb_av] MEDEN T ([facility], ) Body mass index (BMI) [Ratio] 26.6 kg/m2 26.6 k g/m2 MEDENT ([facility]) Body weight 155.00 [lb_av] 155.00 [lb_av] MEDEN T ([facility], ) Body height 64 [in_i] 64 [in_i] MEDENT ([facility]) 5'4" Body mass index (BMI) [Ratio] 27.5 kg/m2 27.5 k g/m2 MEDENT ([facility] Heart rate 73 /min 73 /min MED[facility] ([facility] Diastolic blood pressure 80 mm[Hg] 80 mm[Hg] MEDENT ([facility] Systolic blood pressure 110 mm[Hg] 110 mm[Hg] M EDENT ([facility] Body weight 160.00 [lb_av] 160.00 [lb_av] MEDEN T ([facility] Body height 64 [in_i] 64 [in_i] MEDENT ([facility] 5'4" [place] body weight 120 [lb_av] 120 [lb_av] MEDEN T ([facility], ) Body mass index (BMI) [Ratio] 26.6 kg/m2 26.6 k g/m2 MEDENT ([facility]) Body weight 155.00 [lb_av] 155.00 [lb_av] MEDEN T ([facility], ) Body height 64 [in_i] 64 [in_i] MEDENT ([facility], ) 5'4" Respiratory rate 12 /min 12 /min [facility] ( [facility]) Patient Treatment Plan of Care Planned Activity Planned Date Details Description Data Source (s) 24 HR Oxybutynin chloride 10 MG Extended Release Oral Tablet 10/04/2020 12:00:00 AM EST eCW1 ([facility]) 24 HR Oxybutynin chloride 10 MG Extended Release Oral Tablet 10/04/2020 12:00:00 AM EST eCW1 ([facility])
--- OUTSIDE RECORDS SUMMARY | 2020-10-31 09:12 | CCD ---
Author Author [facility] Organization [facility] Address Unknown Phone Unavailable Care Team Providers Care Um Rn Name Role Phone Zan Orta Unavailable PROBLEMS Type Condition ICD9-CM Code [id number] Code Onset Dates Condition S tatus SNOMED Code Notes Problem Urinary frequency R35.0 Active [id number] ALLERGIES No Known Allergies ENCOUNTERS from 1992 to 2020-10-09 Encounter Location Date Provider Diagnosis [facility] [address] [place] [address] Sep Zan Orta Urinary frequency R35.0 IMMUNIZATIONS No Information SOCIAL HISTORY Tobacco Use: Social History Observation Description Date Details (start date - stop date) Never Smoker Sex Assigned At : Social History Observation Description Sex Assigned At Unknown Language: Question Answer Notes Languages spoken: Amharic Scientology: Question Answer Notes Scientology No presybeterian beliefs that would impact health care. Alcohol [...] REASON FOR REFERRAL No Information VITAL SIGNS Weight 169 lbs Sep, Height 64 in Sep, BMI 29.01 kg/m2 Sep, Heart Rate 78 /min Sep, Respiratory Rate 18 /min Sep, Temperature 98.2 degrees Fahrenheit Sep, Oximetry 98% Sep, Blood pressure systolic 122 mm Hg Sep, Blood pressure diastolic 70 mm Hg Sep, MEDICATIONS Medication SIG (Take, Route, Frequency, Duration) [...] a day for 30 day(s) Not-Taking PROCEDURES from 1992 to 2020-10-09 Procedure Date Ordered Result Body Site uro PVR (Post Voiding Residual) Bladder Scan 2020-10-04 N/A RESULTS Component Value Reference Range UA URINALYSIS Reviewed date:10/05/2020 15:28:58 Interpretation: Performing Lab:[facility] [address] [address] , ,[place] [address] URINE CULTURE Reviewed date:10/05/2020 13:37:26 Interpretation: Performing Lab:[facility] [address] [address] , ,[place] [address] REASON FOR VISIT pelvic pain MEDICAL (GENERAL) HISTORY Type Description Date Medical History HTN Medical History Migraine with aura Surgical History foot surgery 05/2020 Surgical History tonsillectomy 2018 Surgical History oral surgery Surgical History colonoscopy 2016 Goals Section No Information Health Concerns No Information MEDICAL EQUIPMENT No Information MENTAL STATUS No Information FUNCTIONAL STATUS No Information ASSESSMENTS Encounter Date Diagnosis Assessment Notes Treatment Notes Treatm ent Clinical Notes Sep, Urinary frequency (ICD-10 - R35.0) Will send UA and culture today and check for microscopic hematuria. PVR today is 0 cc. I am unsure if she has IC. First recommended cutting back on any bladder irritants and stopping drinking 2 hours before bed. Discussed starting OAB medication for the urinary freuqency, with potential side effects being dry mouth, dry eyes, consitipation and urinary retention. Discussed medication can take 6-8 weeks for full effect. Script sent to pharmacy, f/u in 6 weeks with IPSS and PVR. We will see if this helps, if not then she may benefit from a cystoscopy. PLAN OF TREATMENT Medication Medication Name Sig Start Date Stop Date Oxybutynin Chloride ER 10 MG 1 tablet Orally Once a day for 30 day(s) Sep, Treatment Notes Assessment Notes Clinical Notes Urinary frequency Will send UA and cul ture today and check for microscopic hematuria.PVR today is 0 cc.I am unsure if she has IC. First recommended cutting back on any bladder irritants and stopping drinking 2 hours before bed.Discussed starting OAB medication for the urinary freuqency, with potential side effects being dry mouth, dry eyes, consitipation and urinary retention. Discussed medication can take 6-8 weeks for full effect. Script sent to pharmacy, f/u in 6 weeks with IPSS and PVR.We will see if this helps, if not then she may benefit from a cystoscopy. Next Appt Details 6 Weeks Reason:urinary frequency Provider Name:Zan Orta, 2020-11-15 01:00:00 PM, [address], [place], [address], Follow Up:6 Weeksurinary frequency Insurance Providers Payer Name Payer Address Payer Phone Insured Name Patient Relati onship to Insured Coverage Start Date Coverage End Date [facility] [employer] [address] [place] [address] SAMMY FRANCISCO self
[2020-10-31 09:50] LABS: HEMATOCRIT 37.8 % (36.0-47.0); HEMOGLOBIN 11.9 g/dl (12.0-15.5); MEAN CORPUSCULAR HEMOGLOBIN 28.6 pg (27.0-33.0); MEAN CORPUSCULAR HGB CONC 31.5 g/dl (32.0-36.5); MEAN CORPUSCULAR VOLUME 90.9 fl (80.0-96.0); PLATELET COUNT, AUTOMATED 253 10^3/uL (150-450); RED BLOOD COUNT 4.16 10^6/uL (4.00-5.40); WHITE BLOOD COUNT 6.3 10^3/uL (4.0-10.0)
[2020-10-31 10:25] LABS: BLOOD UREA NITROGEN 12 MG/DL (7-18); CALCIUM LEVEL 9.2 MG/DL (8.5-10.1); CARBON DIOXIDE LEVEL 29 MEQ/L (21-32); CHLORIDE LEVEL 105 MEQ/L (98-107); CREATININE FOR GFR 0.77 MG/DL (0.55-1.30); GLOMERULAR FILTRATION RATE > 60.0 (>60); GLUCOSE, FASTING 94 MG/DL (70-100); HCG, SERUM QUANTITATIVE < 1.0 MIU/ML; POTASSIUM SERUM 4.7 MEQ/L (3.5-5.1); SODIUM LEVEL 138 MEQ/L (136-145)
[2020-10-31] MEDS ORDERED: ONDANSETRON 4MG/2ML VIAL As Ordered ONE (11:15)
[2020-10-31] MEDS ORDERED: fentaNYL 100 MCG/2 ML INJECTION (J3010) As Ordered ONE (11:15)
[2020-10-31] MEDS ORDERED: propofoL 200 MG/20 ML VIAL As Ordered ONE (11:15)
[2020-10-31] MEDS ORDERED: MIDAZOLAM INJ 2MG/2ML VIAL (J2250 PER 1MG) As Ordered ONE (11:15)
[2020-10-31] MEDS ORDERED: METOCLOPRAMIDE INJ 10MG/2ML VIAL (J2765 PER 1) As Ordered ONE (11:15)
[2020-10-31] MEDS ORDERED: ROCURONIUM BROMIDE 50 MG/5 ML VIAL As Ordered ONE (11:15)
[2020-10-31] MEDS ORDERED: LIDOCAINE 2% 100MG/5ML SDV (FOR ANES.) As Ordered ONE (11:15)
[2020-10-31] MEDS ORDERED: BUPIVACAINE HCL 0.5% 10ML VIAL As Ordered ONE (12:13)
[2020-10-31] MEDS ORDERED: ACETAMINOPHEN 650 MG SUPP As Ordered ONE (12:13)
[2020-10-31] MEDS ORDERED: METHYLENE BLUE 0.5% (5MG/ML) 10 ML AMP (PROVAYBLUE) As Ordered ONE (12:13)
[2020-10-31] MEDS ORDERED: dexameTHASONE 4 MG/ML 1ML VIAL (J1100 PER 1MG) As Ordered ONE (12:54)
[2020-10-31] MEDS ORDERED: SUGAMMADEX SODIUM 500 MG/5 ML VIAL (BRIDION) As Ordered ONE (12:54)
[2020-10-31] MEDS ORDERED: KETOROLAC 60MG 2ML VIAL As Ordered ONE (12:54)
[2020-10-31] MEDS ORDERED: ONDANSETRON 4MG/2ML VIAL IV PRN (13:45)
[2020-10-31] MEDS ORDERED: fentaNYL 100 MCG/2 ML INJECTION (J3010) IV PRN (13:45)
[2020-10-31] MEDS ORDERED: KETOROLAC 30 MG/ML 1ML VIAL IV PRN (13:45)
[2020-10-31] MEDS ORDERED: LR 1,000 ML IV SCH (13:45)
[2020-10-31] MEDS: oxyCODONE 5MG TAB PO PRN ×2 (13:58→14:31)
[2020-10-31 15:25] VITALS: BP 119/76
--- NOTE | 2020-11-13 13:44 | RO ---
OPERATIVE NOTE DATE OF OPERATION: 10/31/2020 PREOPERATIVE DIAGNOSIS: Left lower quadrant pain. POSTOPERATIVE DIAGNOSIS: Left lower quadrant pain. Pelvic congestion syndrome left side. OPERATION PROPOSED: Pap smear and diagnostic laparoscopy. OPERATION PERFORMED: Pap smear and diagnostic laparoscopy. SURGEON: Conrado Madrigal MD [employer] ATTENDANT: Ziggy Carrillo DO; for retraction and visualization without which, the procedure could not be completed. ANESTHESIA: General plus local anesthetic for intraperitoneal procedures. ESTIMATED BLOOD LOSS: Less than 10 mL. DESCRIPTION OF PROCEDURE: After adequate time-out, prepped and draped in the lithotripsy position, a Pap smear was performed and was sent to pathology under separate cover. We then went ahead and put a weighted-speculum in the vagina with a single-tooth tenaculum on the anterior lip of the cervix and uterine was placed in the endocervical canal. After prepping and draping a small subumbilical incision was made, Veress needle applied, and 3.8 L of CO2 at a flow rate of 3 L/min to a maximum of 14 pressure. Direct entry into the abdomen no evidence of perforation, hemorrhage, or bleeding. A port was placed on the right side 3 mm in order to elevate the area and then with the camera in place, there was no evidence of hemorrhage or perforation. There was some active bleeding, but that was because she was having her period and it basically was in the cul-de-sac. Panoramic review of the right upper quadrant was normal. The left upper quadrant was normal. The appendiceal area was normal. The right ovary and the right tube were normal. There was some old blood in the cul-de-sac, but she was menstruating. The left tube in the left ovary appeared to be normal. Interestingly, she had huge varicose veins on the left side where she was complaining of her chronic pain and intermittent pain. The right side, the uterosacrals was less developed and the vessels in that area appeared to be normal. There was no evidence of pelvic inflammatory disease. No evidence of adhesions. No evidence of endometriosis. With that done, we irrigated out the old blood that was there. Then we deflated to 3 mm of pressure, removed the side port, and removed the main stem port. We put subcuticular stitches in each area with marcaine 0.25% 3 mL in each area. Steri-Strips were applied. The instruments below the tenaculum and the sound were removed, and the patient was sent to recovery in good condition.
== END 2020-10-31 15:31 | disposition home or self-care (01) ==
LOC: M SDC 08:37
PROVIDERS: ATTEND Obstetrics & Gynecology
DX: N94.89 Other specified conditions associated with female genital organs and menstrual cycle (principal); I10 Essential (primary) hypertension; G43.909 Migraine, unspecified, not intractable, without status migrainosus; F41.9 Anxiety disorder, unspecified; Z79.899 Other long term (current) drug therapy; Z12.4 Encounter for screening for malignant neoplasm of cervix
CPT/HCPCS: 36415; 49320; 80048; 84702; 85027; 88305; 88342; G0123; J1100; J1885; J2250; J2405; J2765; J3010; Q9968

== ENCOUNTER → 2021-04-10 | Outpatient (REF) | payer OTHER ==
[~2021-04-10] MED LIST changes: -ACETAMINOPHEN 650 MG SUPP PR ONE; -LR 1,000 ML IV ONE
== END ==
LOC: M WUC 15:48
PROVIDERS: ATTEND Nurse Practitioner Family
DX: J02.9 Acute pharyngitis, unspecified (principal)